=== PATIENT | female | born 1965 | race African-American/Black ===

== ENCOUNTER 2016-10-09 21:26 | Emergency (ER) | payer SELFPAY ==
[~2016-10-09] VITALS: Ht 149.9 cm; Wt 75.7 kg
[~2016-10-09 21:26] MED LIST: AMOXICILLIN500 MG PO; AMOXICILLIN875 MG PO; MOTRIN600 MG PO; NAPROSYN500 MG PO; NORCO 5/3251 TABLET PO; PEN-VEE K,VEET500 MG PO; TRAMADOL HCL50 MG PO
[2016-10-09] MEDS ORDERED: PEN-VEE K,VEET500 MG PO (22:40)
[2016-10-09] MEDS ORDERED: METFORMIN HCL500 M4 PO (23:00)
[2016-10-10 00:09] VITALS: BP 155/79
== END 2016-10-10 | disposition home or self-care (01) ==
LOC: EME 21:26 → RME 21:26
DX: K08.89 Other specified disorders of teeth and supporting structures (principal)
CPT/HCPCS: 99281; 99283

== ENCOUNTER 2017-01-30 08:37 | Emergency (ER) | payer SELFPAY ==
[~2017-01-30] VITALS: Ht 149.9 cm; Wt 76.3 kg
[~2017-01-30 08:37] MED LIST changes: +METFORMIN HCL500 M4 PO
[2017-01-30] MEDS ORDERED: NAPROSYN500 MG PO (09:46)
[2017-01-30] MEDS ORDERED: PEN-VEE K,VEET500 MG PO (09:46)
[2017-01-30] MEDS ORDERED: TRAMADOL HCL50 MG PO (09:46)
[2017-01-30 09:57] VITALS: BP 100/81
== END 2017-01-30 09:59 | disposition home or self-care (01) ==
LOC: EME 08:37
PROC: 3E0T3BZ Introduction of Anesthetic Agent into Peripheral Nerves and Plexi, Percutaneous Approach (ICD-10-PCS; principal; 2017-01-30)
DX: K04.7 Periapical abscess without sinus (principal); K03.81 Cracked tooth; E11.9 Type 2 diabetes mellitus without complications; I10 Essential (primary) hypertension; Z79.84 Long term (current) use of oral hypoglycemic drugs
CPT/HCPCS: 99281; 99283

== ENCOUNTER 2017-07-11 08:52 | Emergency (ER) | payer OTHER ==
[~2017-07-11] VITALS: Ht 149.9 cm; Wt 77.3 kg
[~2017-07-11 08:52] MED LIST changes: +PREDNISONE10 MG PO
[2017-07-11] MEDS ORDERED: AMOXICILLIN500 MG PO (09:28)
[2017-07-11] MEDS ORDERED: TYLENOL WITH C1 EACH PO (09:28)
[2017-07-11 09:41] VITALS: BP 148/62
== END 2017-07-11 09:42 | disposition home or self-care (01) ==
LOC: EME 08:52
DX: K08.89 Other specified disorders of teeth and supporting structures (principal); E11.9 Type 2 diabetes mellitus without complications
CPT/HCPCS: 99281; 99284

== ENCOUNTER 2017-10-17 14:47 | Emergency (ER) | payer OTHER ==
[~2017-10-17] VITALS: Ht 149.9 cm; Wt 77.2 kg
[~2017-10-17 14:47] MED LIST changes: +TYLENOL WITH C1 EACH PO
[2017-10-17] MEDS ORDERED: MOTRIN800 MG PO (15:19)
[2017-10-17] MEDS ORDERED: PEN-VEE K,VEET500 MG PO (15:19)
[2017-10-17] MEDS ORDERED: ULTRAM50 MG PO (15:19)
[2017-10-17 15:33] VITALS: BP 156/104
== END 2017-10-17 15:35 | disposition home or self-care (01) ==
LOC: EME 14:47
DX: K08.89 Other specified disorders of teeth and supporting structures (principal); K04.7 Periapical abscess without sinus; K02.9 Dental caries, unspecified; K03.81 Cracked tooth; H92.01 Otalgia, right ear; E11.9 Type 2 diabetes mellitus without complications; Z79.84 Long term (current) use of oral hypoglycemic drugs
CPT/HCPCS: 99281; 99284